=== PATIENT | female | born 1965 | race Two or more races ===

== ENCOUNTER 2024-10-26 05:38 | Inpatient (IN) | payer BC, OTHER ==
[~2024-10-26] VITALS: Ht 162.6 cm; Wt 73.8 kg
[2024-10-26] VITALS (8 sets, daily range): BP systolic 114–124; BP diastolic 48–63; PULSE 60–107; RESP 14–22; TEMP 97.8–98.8; O2SAT 91–98
--- NOTE | 2024-10-26 06:23 | ED.PDOC ---
GI ASSESSMENT HPI Comments 59 year old female KEVIN presents to the ED with chief complaint of N/V/D. Patient reports that since Wednesday, she had been experiencing nasal congestion with associated cough and nausea, however, since Wednesday she started to experience N/V/D with abdominal pain. Patient relays that she has had no recent sick contacts. Patient denies any hematemesis, dysuria, fever, chills, dizziness, headache, SOB. Chief Complaint: Nausea/Vomiting Time Seen by MD: 06:20 Reviewed Notes: Nurses Notes, Medications, Allergies Allergies: Coded Allergies: NO KNOWN ALLERGIES (Unverified , 10/26/24) Information Source: Patient, Spouse Mode of Arrival: EMS Timing: Days Duration: Since onset Prehospital treatment: None Quality: Aching Vomitus: Watery Stool: Watery Severity: Moderate Recent: None Recent Hx of: None Pain Location: Epigastric Modifying Factors: Nothing Associated sign and symptoms: Nausea, Vomiting, Diarrhea, Abdominal Pain Past Medical History PAST MEDICAL HISTORY: Denies Surgical History: Denies all surgeries MOTEL MANAGER History: 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 Family History Family History: Reviewed,noncontributory to illness Social History Smoker: Non-Smoker Alcohol: Denies ETOH Use Drugs: Denies Drug Use Lives In: Home Constitutional: denies: chills, diaphoresis, fatigue, fever, malaise, sweats, weakness, others EENTM: reports: nose congestion; denies: blurred vision, double vision, ear bleeding, ear discharge, ear drainage, ear pain, ear ringing, eye pain, eye redness, hearing loss, mouth pain, mouth swelling, nasal discharge, nose bleeding, nose pain, photophobia, tearing, throat pain, throat swelling, voice changes, others Respiratory: reports: cough; denies: hemoptysis, orthopnea, SOB at rest, shortness of breath, SOB with excertion, stridor, wheezing, others Cardiovascular: denies: chest pain, dizzy spells, diaphoresis, Dyspnea on exertion, edema, irregular heart beat, left arm pain, lightheadedness, palpitations, PND, syncope, others Gastrointestinal: reports: abdominal pain, diarrhea, nausea, vomiting; denies: abdomen distended, blood streaked bowels, constipated, dysphagia, difficulty swallowing, hematemesis, melena, poor appetite, poor fluid intake, rectal bleeding, rectal pain, others Genitourinary: denies: abnormal vagina bleeding, burning, dyspareunia, dysuria, flank pain, frequency, hematuria, incontinence, pain, , vagina discharge, urgency, others Neurological: denies: dizziness, fainting, headache, left sided numbness, left sided weakness, numbness, paresthesia, pre-existing deficit, right sided numbness, right sided weakness, seizure, speech problems, tingling, tremors, weakness, others Musculoskeletal: denies: back pain, gout, joint pain, joint swelling, muscle pain, muscle stiffness, neck pain, others Integumetry: denies: bruises, change in color, change in hair/nails, dryness, laceration, lesions, lumps, rash, wounds, others Allergic/Immunocompromised: denies: Difficulty Healing, Frequent Infections, Hives, Itching, others Hematologic/Lymphatic: denies: anemia, blood clots, easy bleeding, easy bruising, swollen glands, others Endocrine: denies: excessive hunger, excessive sweating, excessive thirst, excessive urination, flushing, intolerance to cold, intolerance to heat, unexplained weight gain, unexplained weight loss, others Psychiatric: denies: anxiety, bipolar disorder, depression, hopeless, panic disorder, schizophrenia, sleepless, suicidal, others All Other Systems: Reviewed and Negative Physical Exam General Appearance: Moderate Distress, Normal HEENT: Normal ENT Inspection, PERRL/EOMI, Pharynx Normal, TMs Normal Neck: Full Range of Motion, Non-Tender, Normal, Normal Inspection Respiratory: Chest Non-Tender, Lungs Clear, No Accessory Muscle Use, No Respiratory Distress, Normal Breath Sounds Cardiovascular: No Edema, No JVD, No Murmur, No Gallop, Normal Peripheral Pulses, Regular Rate/Rhythm Breast Exam: Deferred Gastrointestinal: No Organomegaly, No Pulsatile Mass, Normal Bowel Sounds, Soft Genitalia: Deferred Pelvic: Deferred Rectal: Deferred Extremities: No calf tenderness, Normal capillary refill, Normal inspection, Normal range of motion, Non-tender, No pedal edema Musculoskeletal : Apperance: Normal Neurologic: Alert, country printer II-XII nml as Tested, No Motor Deficits, Normal Affect, Normal Mood, No Sensory Deficits Cerebellar Function: Normal Reflexes: Normal Skin: Dry, Normal Color, Warm Peripheral Pulses: 3+ Radial (R), 3+ Radial (L) Lymphatic: No Adenopathy Was a procedure done? Was a procedure done?: No GI differential Dx Differential Diagnosis: Constipation, Diverticular disease, Esophagitis, Gastritis/PUD, Gastroenteritis X-Ray, Labs, Meds, VS Vital Signs Date Time Temp Pulse Resp B/P (MAP) Pulse Ox O2 Delivery O2 Flow Rate FiO2 10/26/24 09:22 70 18 135/57 10/26/24 08:24 17 Room Air* 0 21 10/26/24 07:28 107 22 147/76 10/26/24 07:05 107 22 147/76 (99) 98 10/26/24 07:05 107 22 98 Room Air* 0 21 10/26/24 05:42 97.8 88 16 121/67 (85) 98 Lab Test 10/26/24 09:00 10/26/24 07:54 10/26/24 06:30 Range/Units Urine Color Yellow Yellow Urine Clarity Turbid H Clear Urine pH 5.5 5.0-9.0 Urine Specific [place] 1.026 1.001-1.035 Urine Protein 2+ H Negative Urine Ketones 2+ H Negative Urine Blood 1+ H Negative /uL Urine Nitrite Negative Negative Urine Bilirubin 1+ H Negative Urine Urobilinogen 2 H Negative mg/dL Urine Leukocyte Esterase Negative Negative /uL Urine RBC 2 0 - 4 /hpf Urine WBC 10 0 - 5 /hpf Urine Squamous Epithelial Cells None seen <5 /hpf Urine Bacteria None seen None Seen /hpf Urine Hyaline Casts Many 0 - 2 /lpf Urine Mucus Few None Seen Urine Glucose Normal Normal mg/dL Lactic Acid Level 1.5 0.4-2.0 mmol/L White Blood Count 5.0 4.4-10.8 10^3/uL Red Blood Count 4.97 4.0-5.20 10^6/uL Hemoglobin 16.2 12.2-16.2 g/dL Hematocrit 47.1 H 36.0-46.0 % Mean Corpuscular Volume 94.7 80.0-100.0 fL Mean Corpuscular Hemoglobin 32.6 H 28.0-32.0 pg Mean Corpuscular Hemoglobin Concent 34.4 32.0-36.0 g/dL Red Cell Distribution Width 12.7 11.8-14.3 % Platelet Count 251 140-450 10^3/uL Mean Platelet Volume 8.6 6.9-10.8 fL Neutrophils (%) (Auto) 66.7 37.0-80.0 % Lymphocytes (%) (Auto) 21.6 10.0-50.0 % Monocytes (%) (Auto) 11.2 0.0-12.0 % Eosinophils (%) (Auto) 0.0 0.0-7.0 % Basophils (%) (Auto) 0.5 0.0-2.0 % Neutrophils # (Auto) 3.3 1.6-8.6 10 ^3/uL Lymphocytes # (Auto) 1.1 0.4-5.4 10 ^3/uL Monocytes # (Auto) 0.6 0-1.3 10 ^3/uL Eosinophils # (Auto) 0 0-0.8 10 ^3/uL Basophils # (Auto) 0 0-0.2 10 ^3/uL Nucleated Red Blood Cells 0.1 % Sodium Level 134 L 136-145 mmol/L Potassium Level 4.4 3.5-5.1 mmol/L Chloride Level 103 98-107 mmol/L Carbon Dioxide Level 14 L 20-31 mmol/L Anion Gap 17 H 5-15 Blood Urea Nitrogen 31 H 9-23 mg/dL Creatinine 1.39 H 0.550-1.02 mg/dL Glomerular Filtration Rate Calc 44 >90 mL/min BUN/Creatinine Ratio 22.3 H 10.0-20.0 Serum Glucose 121 H 74-106 mg/dL Calcium Level 8.8 8.7-10.4 mg/dL Troponin I High Sensitivity 4 </=34 ng/L Current Medications Medications (Trade) Dose Ordered Sig/Pancho Route Start Time Stop Time Status Last Admin Sodium Chloride 1,000 ml @ 1,000 mls/hr Q1H ONCE IV 10/26/24 06:30 10/26/24 07:29 DC 10/26/24 07:22 Ondansetron HCl (Zofran) 4 mg ONCE ONCE IV 10/26/24 06:30 10/26/24 06:31 DC 10/26/24 07:22 Morphine Sulfate 4 mg ONCE ONCE IV 10/26/24 06:30 10/26/24 06:31 DC 10/26/24 07:28 Patient alert. Complaining of abdominal pain. Vitals stable. Answering all questions. Denies use of any drugs. Abdomen is soft. Was given pain medication. Was given Zofran. Explained to the patient. Continue cardiac monitoring. Acute tubular necrosis. Continue fluids. Chest x-ray reviewed does not show any acute changes. Chest XR: FINDINGS: Lines and Tubes: None Lungs: No focal consolidation. Pleura: No effusion. No pneumothorax. Cardiomediastinal contours: Unremarkable Bones: No acute osseous abnormality. IMPRESSION: 1. No acute cardiopulmonary disease. CT Abd/Pel:Findings: Evaluation of vasculature and solid organs is limited due to lack of intravenous contrast use. Lung Bases: Lung bases are clear. Visualized portions of the heart and pericardium are unremarkable. Liver: The liver is normal in size. No focal lesions. Diffusely hypoattenuating liver parenchyma consistent with hepatic steatosis. Gallbladder and Biliary Tree: The gallbladder is unremarkable. No intrahepatic or extrahepatic biliary ductal dilatation. Spleen: Unremarkable Pancreas: The pancreas is grossly unremarkable. Adrenal Glands: Unremarkable Kidneys: Kidneys are unremarkable without calculi or hydronephrosis. GI tract: The stomach is grossly normal in appearance. No evidence of small bowel wall thickening or abnormal dilatation to suggest bowel obstruction. The colon is unremarkable. The appendix is not visualized, however no inflammatory changes in the right lower quadrant to suggest acute appendicitis. Peritoneum/mesentery/retroperitoneum. No evidence of free intraperitoneal air. No ascites. No evidence of suspicious lymphadenopathy. Abdominal Wall: Unremarkable. Vasculature: The visualized abdominal aorta is normal in size and caliber. Evaluation of abdominal and pelvic vessels is limited due to lack of intravenous contrast. Urinary Bladder: Grossly unremarkable for degree of distention. Pelvic Organs: Unremarkable Musculoskeletal: No aggressive focal bony lesions, acute fractures or dislocation. IMPRESSION: 1. No CT evidence of gallstones or acute abdominal or pelvic findings. Right upper quadrant ultrasound may be obtained for further evaluation if there is concern for cholelithiasis. 2. Hepatic steatosis. Abdomen US: FINDINGS: The visualized liver parenchyma appears homogenous . The liver measures 13.2 cm. No discrete hepatic lesion or intrahepatic biliary ductal dilatation is identified. There is no evidence of gallstones, gallbladder wall thickening or pericholecystic fluid. The common biliary duct is not dilated. The right kidney measures 9.5 cm length. The left kidney measures 9.1 cm. No sonographic evidence of nephrolithiasis or hydronephrosis. The spleen measures 9.9 cm and appears within normal limits. Pancreas is obscured by bowel gas. The visualized portions of the IVC and aorta are grossly unremarkable. IMPRESSION: 1. The visualized solid abdominal viscera appears within normal limits. Images Reviewed?: Images reviewed and evaluated by me Time of 1ST Reevaluation: 07:20 Reevaluation 1ST: Unchanged Patient Education/Counseling: Diagnosis, Treatment Family Education/Counseling: Diagnosis, Treatment Departure 1 Departure Time of Disposition: 06:29 Impression: Primary Impression: Acute abdominal pain Additional Impression: Acute tubular necrosis Disposition: ADMITTED INPATIENT Admit to: Med Surg Condition: Guarded Critical Care Note Critical Care Time?: Yes (45 min-critical care time only) Stability Stability form required: No Heart Score Heart Score: Heart Score Response (Comments) Value History N/A 0 EKG N/A 0 Age N/A 0 Risk Factors N/A 0 Troponin N/A 0 Total 0 I personally scribed for MARI SOTELO MD ([email or web address]) on 10/26/24 at 06:23. Electronically submitted by Wm Starks ([email or web address]). I personally scribed for MARI SOTELO MD ([email or web address]) on 10/26/24 at 07:31. Electronically submitted by Wm Starks ([email or web address]). I personally scribed for MARI SOTELO MD ([email or web address]) on 10/26/24 at 09:16. Electronically submitted by Wm Starks ([email or web address]). I personally scribed for MARI SOTELO MD ([email or web address]) on 10/26/24 at 11:12. Electronically submitted by Wm Starks ([email or web address]). MARI SOTELO MD Oct 26, 2024 06:23
[2024-10-26 07:17] LABS: Basophils # (auto) 0 10 ^3/uL (0-0.2); Basophils % (auto) 0.5 % (0.0-2.0); Eosinophils # (auto) 0 10 ^3/uL (0-0.8); Hematocrit 47.1 % (36.0-46.0); Hemoglobin 16.2 g/dL (12.2-16.2); Lymphocytes # (auto) 1.1 10 ^3/uL (0.4-5.4); Lymphocytes % (auto) 21.6 % (10.0-50.0); Mean Corpuscular Hemoglobin 32.6 pg (28.0-32.0); Mean Corpuscular Hgb Conc. 34.4 g/dL (32.0-36.0); Mean Corpuscular Volume 94.7 fL (80.0-100.0); Monocytes # (auto) 0.6 10 ^3/uL (0-1.3); Monocytes % (auto) 11.2 % (0.0-12.0); Neutrophils # (auto) 3.3 10 ^3/uL (1.6-8.6); Neutrophils % (auto) 66.7 % (37.0-80.0); Nucleated Red Blood Cells % 0.1 %; Platelet Count (auto) 251 10^3/uL (140-450); Red Blood Cells 4.97 10^6/uL (4.0-5.20); Red Cell Distribution Width 12.7 % (11.8-14.3)
[2024-10-26] MEDS: ONDANSETRON HCL 4 MG/2 ML VIAL IV ONE (07:22)
[2024-10-26] MEDS: SODIUM CHLORIDE 0.9% 1,000 ML IV ONE ×2 (07:22→07:30)
[2024-10-26 07:23] LABS: Calcium 8.8 mg/dL (8.7-10.4)
[2024-10-26 07:24] LABS: Chloride 103 mmol/L (98-107); Potassium 4.4 mmol/L (3.5-5.1)
[2024-10-26 07:26] LABS: Anion Gap 17 (5-15); Carbon Dioxide 14 mmol/L (20-31); Sodium 134 mmol/L (136-145)
[2024-10-26 07:28] LABS: BUN/Creatinine Ratio 22.3 (10.0-20.0)
[2024-10-26] MEDS: MORPHINE SULFATE 4 MG/ML SYR/VIAL IV ONE (07:28)
--- NOTE | 2024-10-26 07:29 | DVH ---
CHEST RADIOGRAPH Indication: cough Technique: Single frontal view of the chest was obtained Comparison: None FINDINGS: Lines and Tubes: None Lungs: No focal consolidation. Pleura: No effusion. No pneumothorax. Cardiomediastinal contours: Unremarkable Bones: No acute osseous abnormality. IMPRESSION: 1. No acute cardiopulmonary disease.
[2024-10-26 07:35] LABS: Blood Urea Nitrogen 31 mg/dL (9-23); Glucose 121 mg/dL (74-106)
--- NOTE | 2024-10-26 08:35 | DVH ---
Exam: CT CT AB PEL WO CON-NO ORAL OR IV History: stonevsgallbladder Comparison Study: None available at time of dictation. Technique: Multidetector spiral CT of the abdomen and pelvis was performed from lung bases to pubic s ymphysis. Imaging was performed without intravenous contrast. Coronal and sagittal multiplanar refor mats were obtained from the axial data set by the technologist. Radiation Dose : 1. Abdomen/Pelvis: CTDIvol 6.0 mGy, DLP 297 mGy*cm. Findings: Evaluation of vasculature and solid organs is limited due to lack of intravenous contrast use. Lung Bases: Lung bases are clear. Visualized portions of the heart and pericardium are unremarkable. Liver: The liver is normal in size. No focal lesions. Diffusely hypoattenuating liver parenchyma con sistent with hepatic steatosis. Gallbladder and Biliary Tree: The gallbladder is unremarkable. No intrahepatic or extrahepatic bili zack ductal dilatation. Spleen: Unremarkable Pancreas: The pancreas is grossly unremarkable. Adrenal Glands: Unremarkable Kidneys: Kidneys are unremarkable without calculi or hydronephrosis. GI tract: The stomach is grossly normal in appearance. No evidence of small bowel wall thickening or abnormal dilatation to suggest bowel obstruction. The colon is unremarkable. The appendix is not vi sualized, however no inflammatory changes in the right lower quadrant to suggest acute appendicitis. Peritoneum/mesentery/retroperitoneum. No evidence of free intraperitoneal air. No ascites. No evidenc e of suspicious lymphadenopathy. Abdominal Wall: Unremarkable. Vasculature: The visualized abdominal aorta is normal in size and caliber. Evaluation of abdominal a nd pelvic vessels is limited due to lack of intravenous contrast. Urinary Bladder: Grossly unremarkable for degree of distention. Pelvic Organs: Unremarkable Musculoskeletal: No aggressive focal bony lesions, acute fractures or dislocation. IMPRESSION: 1. No CT evidence of gallstones or acute abdominal or pelvic findings. Right upper quadrant ultrasoun d may be obtained for further evaluation if there is concern for cholelithiasis. 2. Hepatic steatosis.
[2024-10-26 09:44] LABS: Urine Bacteria None Seen /hpf (None Seen)
[2024-10-26 10:00] LABS: Urine Blood 1+ /uL (Negative); Urine Clarity Turbid (Clear); Urine Color Yellow (Yellow); Urine Hyaline Cast MANY /lpf (0 - 2); Urine Mucus FEW (None Seen); Urine Protein, UAD 2+ (Negative); Urine Specific Gravity 1.026 (1.001-1.035); Urine Urobilinogen 2 mg/dL (Negative); Urine WBC 10 /hpf (0 - 5); Urine pH 5.5 (5.0-9.0)
--- NOTE | 2024-10-26 10:05 | DVHHP2 ---
History of Present Illness Reason for Visit: Nausea vomiting and diarrhea History of Present Illness Malia Fitzgerald 51-year-old female who presents with cough, abdominal pain, nausea, vomiting, and diarrhea x 5 days. Patient reports that her fever was 102 F couple of days ago and it just broke last night tonight 99 F with Tylenol. Patient reports with at chair side that they are currently staying at a hotel nearby for his work. She reports that she typically cycles consistently daily. She denies any chest pain, shortness of breath, back pain, headache, lightheadedness, and dizziness. INCOME TAX MANAGER: Carpal Tunnel Syndrome Heme/Onc: Other (Vitamin-D deficiency) Past Surgical History Right Carpal tunnel surgery Family History Polycystic kidney disease Smoke: No ALCOHOL: none Drugs: Marijuana Lives: with Family Domestic Violence: Neg Review of Systems Constitutional: Yes: Fever, Chills; No: Sweats, Weakness, Malaise, Other Eyes: No: Pain, Vision change, Conjunctivae inflammation, Eyelid inflammation, Other, Redness ENT: No: Ear pain, Ear discharge, Nose pain, Nose discharge, Nose congestion, Mouth pain, Mouth swelling, Throat pain, Throat swelling, Other Respiratory: No: Cough, Dry, Shortness of breath, SOB with excertion, Wheezing, Hemoptysis, Pleuritic Pain, Sputum, Wheezing, Other Cardiovascular: No: Chest Pain, Palpitations, Orthopnea, Paroxysmal Noc. Dyspnea, Edema, Lt Headedness, Other Gastrointestinal: Nausea, Vomiting, Abdominal Pain, Diarrhea; No: Constipation, Melena, Hematochezia, Other Genitourinary: No Dysuria, No Frequency, No Incontinence, No Hematuria, No Retention, No Other Musculoskeletal: No: other, neck pain, shoulder pain, arm pain, back pain, hand pain, leg pain, foot pain Skin: No: Rash, Lesions, Jaundice, Bruising, Other Neurological: No: Weakness, Numbness, Incoordination, Change in speech, Confusion, Seizures, Other Allergies: Coded Allergies: NO KNOWN ALLERGIES (Unverified , 10/26/24) Exam Vital Signs Vital Signs Date Time Temp Pulse Resp B/P (MAP) Pulse Ox O2 Delivery O2 Flow Rate FiO2 10/26/24 09:22 70 18 135/57 10/26/24 08:24 Room Air* 0 21 10/26/24 07:05 98 10/26/24 05:42 97.8 General Appearance: Oriented X3, Cooperative, No acute distress HEENT: Atraumatic, PERRLA, EOMI, Mucous membr. moist/pink Respiratory: Clear to auscultation, Normal air movement Cardiovascular: Regular rate, Normal S1, Normal S2, No murmurs Abdominal: Soft Extremities: No clubbing, No cyanosis, No edema, Normal pulses, No tenderness/swelling Skin: No rashes, No breakdown, No significant lesion Neuro: Normal gait, Normal speech, Strength at 5/5 X4 ext, Normal tone, Sensation intact Psych/Mental Status: Mental status NL, Mood NL Labs/Xrays Labs Test 10/26/24 09:00 10/26/24 07:54 10/26/24 06:30 Range/Units Lactic Acid Level 1.5 0.4-2.0 mmol/L White Blood Count 5.0 4.4-10.8 10^3/uL Red Blood Count 4.97 4.0-5.20 10^6/uL Hemoglobin 16.2 12.2-16.2 g/dL Hematocrit 47.1 H 36.0-46.0 % Mean Corpuscular Volume 94.7 80.0-100.0 fL Mean Corpuscular Hemoglobin 32.6 H 28.0-32.0 pg Mean Corpuscular Hemoglobin Concent 34.4 32.0-36.0 g/dL Red Cell Distribution Width 12.7 11.8-14.3 % Platelet Count 251 140-450 10^3/uL Mean Platelet Volume 8.6 6.9-10.8 fL Neutrophils (%) (Auto) 66.7 37.0-80.0 % Lymphocytes (%) (Auto) 21.6 10.0-50.0 % Monocytes (%) (Auto) 11.2 0.0-12.0 % Eosinophils (%) (Auto) 0.0 0.0-7.0 % Basophils (%) (Auto) 0.5 0.0-2.0 % Neutrophils # (Auto) 3.3 1.6-8.6 10 ^3/uL Lymphocytes # (Auto) 1.1 0.4-5.4 10 ^3/uL Monocytes # (Auto) 0.6 0-1.3 10 ^3/uL Eosinophils # (Auto) 0 0-0.8 10 ^3/uL Basophils # (Auto) 0 0-0.2 10 ^3/uL Nucleated Red Blood Cells 0.1 % Sodium Level 134 L 136-145 mmol/L Potassium Level 4.4 3.5-5.1 mmol/L Chloride Level 103 98-107 mmol/L Carbon Dioxide Level 14 L 20-31 mmol/L Anion Gap 17 H 5-15 Blood Urea Nitrogen 31 H 9-23 mg/dL Creatinine 1.39 H 0.550-1.02 mg/dL Glomerular Filtration Rate Calc 44 >90 mL/min BUN/Creatinine Ratio 22.3 H 10.0-20.0 Serum Glucose 121 H 74-106 mg/dL Calcium Level 8.8 8.7-10.4 mg/dL Troponin I High Sensitivity 4 </=34 ng/L Exam: CT CT AB PEL WO CON-NO ORAL OR IV History: stonevsgallbladder Findings: Evaluation of vasculature and solid organs is limited due to lack of intravenous contrast use. Lung Bases: Lung bases are clear. Visualized portions of the heart and pericardium are unremarkable. Liver: The liver is normal in size. No focal lesions. Diffusely hypoattenuating liver parenchyma consistent with hepatic steatosis. Gallbladder and Biliary Tree: The gallbladder is unremarkable. No intrahepatic or extrahepatic biliary ductal dilatation. Spleen: Unremarkable Pancreas: The pancreas is grossly unremarkable. Adrenal Glands: Unremarkable Kidneys: Kidneys are unremarkable without calculi or hydronephrosis. GI tract: The stomach is grossly normal in appearance. No evidence of small bowel wall thickening or abnormal dilatation to suggest bowel obstruction. The colon is unremarkable. The appendix is not visualized, however no inflammatory changes in the right lower quadrant to suggest acute appendicitis. Peritoneum/mesentery/retroperitoneum. No evidence of free intraperitoneal air. No ascites. No evidence of suspicious lymphadenopathy. Abdominal Wall: Unremarkable. Vasculature: The visualized abdominal aorta is normal in size and caliber. Evaluation of abdominal and pelvic vessels is limited due to lack of intravenous contrast. Urinary Bladder: Grossly unremarkable for degree of distention. Pelvic Organs: Unremarkable Musculoskeletal: No aggressive focal bony lesions, acute fractures or dislocation. IMPRESSION: 1. No CT evidence of gallstones or acute abdominal or pelvic findings. Right up per quadrant ultrasound may be obtained for further evaluation if there is concern for cholelithiasis. 2. Hepatic steatosis. CHEST RADIOGRAPH Indication: cough Technique: Single frontal view of the chest was obtained Comparison: None FINDINGS: Lines and Tubes: None Lungs: No focal consolidation. Pleura: No effusion. No pneumothorax. Cardiomediastinal contours: Unremarkable Bones: No acute osseous abnormality. IMPRESSION: 1. No acute cardiopulmonary disease. ULTRASOUND ABDOMEN COMPLETE INDICATION: Rule out Cholelithiasis FINDINGS: The visualized liver parenchyma appears homogenous . The liver measures 13.2 cm. No discrete hepatic lesion or intrahepatic biliary ductal dilatation is identified. There is no evidence of gallstones, gallbladder wall thickening or pericholecyst ic fluid. The common biliary duct is not dilated. The right kidney measures 9.5 cm length. The left kidney measures 9.1 cm. No sonographic evidence of nephrolithiasis or hydronephrosis. The spleen measures 9.9 cm and appears within normal limits. Pancreas is obscured by bowel gas. The visualized portions of the IVC and aorta are grossly unremarkable. IMPRESSION: 1. The visualized solid abdominal viscera appears within normal limits. Assessment/Plan Assessment/Plan Assessment: Rule out cholelithiasis Intractable abdominal pain Hepatic Steatosis Hyponatremia Acute kidney injury History of right carpal tunnel surgery Vitamin-D deficiency Marijuana use Plan: Admit to med surg Abdominal Ultrasound CT abdomen and pelvis noted Chest x-ray noted UA Antiemetics IV fluids Pain management Monitor labs GI Prophylaxis Counseled on substance abuse Plan discussed with: Patient Date of Service: Oct 26, 2024 Billing Provider: NILS MATT Common Visit Codes: [id number] INP/OBS CARE (MOD) NILS MATT Oct 26, 2024 10:05
--- NOTE | 2024-10-26 10:57 | DVH ---
ULTRASOUND ABDOMEN COMPLETE INDICATION: Rule out Cholelithiasis TECHNIQUE: Multiple real-time sonographic images of the abdomen were obtained. COMPARISON: CT abdomen 10/26/2024 FINDINGS: The visualized liver parenchyma appears homogenous . The liver measures 13.2 cm. No discrete hep atic lesion or intrahepatic biliary ductal dilatation is identified. There is no evidence of gallstones, gallbladder wall thickening or pericholecystic fluid. The common biliary duct is not dilated. The right kidney measures 9.5 cm length. The left kidney measures 9.1 cm. No sonographic evidenc e of nephrolithiasis or hydronephrosis. The spleen measures 9.9 cm and appears within normal limits. Pancreas is obscured by bowel gas. The visualized portions of the IVC and aorta are grossly unremarkable. IMPRESSION: 1. The visualized solid abdominal viscera appears within normal limits. HS:Y
[2024-10-26] MEDS ORDERED: DOCUSATE SOD 100 MG CAP PO PRN (11:15)
[2024-10-26] MEDS ORDERED: MAALOX PLUS or MAALOX 30 ML PO PRN (11:15)
[2024-10-26] MEDS: SODIUM CHLORIDE 0.9% 1,000 ML IV SCH (11:39)
[2024-10-26] MEDS: MORPHINE SULFATE INJ 2 MG/ml SYRG IV PRN (12:02)
[2024-10-26] MEDS: HYDROcodone-ACET 5/325MG TAB PO PRN (14:36)
[2024-10-26] MEDS: LORazepam 0.5 MG TAB PO PRN (22:22)
[2024-10-27 01:00] VITALS: BP 97/47; PULSE 68; RESP 17; TEMP 98.8; O2SAT 92
[2024-10-27 02:44] VITALS: RESP 18; O2SAT 92
[2024-10-27] MEDS: ONDANSETRON HCL 4 MG/2 ML VIAL IV PRN (04:52)
[2024-10-27 05:00] VITALS: BP 113/54; PULSE 90; RESP 17; TEMP 98.8; O2SAT 94
[2024-10-27 06:48] LABS: Potassium 3.5 mmol/L (3.5-5.1); Sodium 140 mmol/L (136-145)
[2024-10-27 06:49] LABS: Anion Gap 11 (5-15); Carbon Dioxide 21 mmol/L (20-31)
[2024-10-27 06:50] LABS: Calcium 9.1 mg/dL (8.7-10.4); Chloride 108 mmol/L (98-107)
[2024-10-27 06:54] LABS: Glucose 86 mg/dL (74-106)
[2024-10-27 06:55] LABS: BUN/Creatinine Ratio 30.9 (10.0-20.0)
[2024-10-27 07:00] LABS: Blood Urea Nitrogen 25 mg/dL (9-23)
[2024-10-27 07:06] LABS: Basophils # (auto) 0 10 ^3/uL (0-0.2); Basophils % (auto) 0.6 % (0.0-2.0); Eosinophils # (auto) 0 10 ^3/uL (0-0.8); Eosinophils % (auto) 0.6 % (0.0-7.0); Hematocrit 37.2 % (36.0-46.0); Hemoglobin 12.6 g/dL (12.2-16.2); Lymphocytes # (auto) 1.1 10 ^3/uL (0.4-5.4); Lymphocytes % (auto) 33.4 % (10.0-50.0); Mean Corpuscular Hemoglobin 32.4 pg (28.0-32.0); Mean Corpuscular Hgb Conc. 33.9 g/dL (32.0-36.0); Mean Corpuscular Volume 95.4 fL (80.0-100.0); Monocytes # (auto) 0.4 10 ^3/uL (0-1.3); Monocytes % (auto) 12.4 % (0.0-12.0); Neutrophils # (auto) 1.8 10 ^3/uL (1.6-8.6); Nucleated Red Blood Cells % 0.5 %; Platelet Count (auto) 171 10^3/uL (140-450); Red Cell Distribution Width 12.7 % (11.8-14.3); White Blood Cell 3.4 10^3/uL (4.4-10.8)
[2024-10-27 09:03] VITALS: BP 119/51; PULSE 72; RESP 12; TEMP 98.1; O2SAT 94
[2024-10-27] MEDS: PANTOPRAZOLE 40 MG/10 ML VIAL INJ IV SCH (09:36)
[2024-10-27 13:07] VITALS: BP 117/55; PULSE 81; RESP 12; TEMP 98.5; O2SAT 94
--- NOTE | 2024-10-27 13:31 | DVHPN2 ---
Reviewed: Care Plan, H&P, Labs, Medications, Previous Orders, Radiology Changes from previous H/P or p: No Changes Eyes: No Pain, No Vision change, No Conjunctivae inflammation, No Eyelid inflammation, No Other, No Redness ENT: No Ear pain, No Ear discharge, No Nose pain, No Nose discharge, No Nose congestion, No Mouth pain, No Mouth swelling, No Throat pain, No Throat swelling, No Other Cardiovascular: No Chest Pain, No Palpitations, No Orthopnea, No Paroxysmal Noc. Dyspnea, No Edema, No Lt Headedness, No Other Respiratory: No Cough, No Dry, No Shortness of breath, No SOB with excertion, No Wheezing, No Hemoptysis, No Pleuritic Pain, No Sputum, No Other Gastrointestinal: Nausea, Vomiting, Abdominal Pain, Diarrhea; No Constipation, No Melena, No Hematochezia, No Other Genitourinary: No Dysuria, No Frequency, No Incontinence, No Hematuria, No Retention, No Other Musculoskeletal: No other, No neck pain, No shoulder pain, No arm pain, No back pain, No hand pain, No leg pain, No foot pain Skin: No Rash, No Lesions, No Jaundice, No Bruising, No Other Objective Vitals Vital Signs Date Time Temp Pulse Resp B/P (MAP) Pulse Ox O2 Delivery O2 Flow Rate FiO2 10/27/24 13:07 98.5 81 12 117/55 (75) 94 98.5 10/27/24 07:45 Room Air* 0 21 Intake/Output Intake and Output 10/27/24 07:00 Intake Total 2100 ml Output Total 0 ml Balance 2100 ml Intake Oral 0 ml IV Total 2100 ml Output Stool Total 0 ml # Voids 5 Medications Current Medications Medications Dose Ordered Sig/Pancho Route Start Time Stop Time Status Last Admin Dose Admin Sodium Chloride 1,000 ml @ 100 mls/hr Q10H IV 10/26/24 11:15 10/27/24 04:57 100 MLS/HR Lorazepam 0.5 mg Q6HP PRN PO 10/26/24 11:15 10/26/24 22:22 0.5 MG Al Hydrox/Mg Hydrox/Simethicone 30 ml Q6HP PRN PO 10/26/24 11:15 Docusate Sodium 100 mg BIDPRN PRN PO 10/26/24 11:15 Acetaminophen 650 mg Q6HP PRN PO 10/26/24 11:15 Acetaminophen/ Hydrocodone Bitart 1 tab Q4HP PRN PO 10/26/24 11:15 10/26/24 21:58 1 TAB Ondansetron HCl 4 mg Q4HP PRN IV 10/26/24 11:15 10/27/24 04:52 4 MG Morphine Sulfate 2 mg Q4HPRN PRN IV 10/26/24 11:15 10/26/24 12:02 2 MG Pantoprazole Sodium 40 mg DAILY IV 10/27/24 10:00 10/27/24 09:36 40 MG Laboratory Results Laboratory Tests 10/27/24 05:24 Chemistry Test 10/27/24 05:24 Calcium Level 9.1 mg/dL (8.7-10.4) Urinalysis Test 10/26/24 09:00 Urine Color Yellow (Yellow) Urine Clarity Turbid (Clear) H Urine pH 5.5 (5.0-9.0) Urine Specific [place] 1.026 (1.001-1.035) Urine Protein 2+ (Negative) H Urine Ketones 2+ (Negative) H Urine Blood 1+ /uL (Negative) H Urine Nitrite Negative (Negative) Urine Bilirubin 1+ (Negative) H Urine Urobilinogen 2 mg/dL (Negative) H Urine Leukocyte Esterase Negative /uL (Negative) Urine RBC 2 /hpf (0 - 4) Urine WBC 10 /hpf (0 - 5) Urine Squamous Epithelial Cells None seen /hpf (<5) Urine Bacteria None seen /hpf (None Seen) Urine Hyaline Casts Many /lpf (0 - 2) Urine Mucus Few (None Seen) Urine Glucose Normal mg/dL (Normal) Labs and/or images reviewed: Labs reviewed by me, Image(s) reviewed by me Assessment/Plan Assessment/Plan Rule out cholelithiasis, CT abdomen pelvis negative for gallstones Intractable abdominal pain: CT abdomen pelvis without contrast negative, pantoprazole Consult for Dr. Olguin Hepatic Steatosis Hyponatremia Acute kidney injury Marijuana use We will check urine drug screen and blood alcohol level Plan discussed with: Patient My Orders Orders - DEON FAIR MD Procedure Category Date Status Time Drug Screen LAB 10/27/24 Logged 13:27 Blood Alcohol LAB 10/27/24 Logged 13:27 * [facility] [employer] CONS 10/27/24 Verified 13:28 Date of Service: Oct 27, 2024 Billing Provider: DEON FAIR MD Common Visit Codes: [id number] INP/OBS CARE(HIGH) DEON FAIR MD Oct 27, 2024 13:31
[2024-10-27] MEDS: SODIUM CHLORIDE 0.9% 1,000 ML IV SCH (15:15)
--- NOTE | 2024-10-27 15:24 | DVHINCON2 ---
Date of service: Oct 27, [address] hurtado Reason for Consultation Abdominal pain nausea vomiting diarrhea History of Present Illness 51-year-old loops abdominal pain in the epigastrium and variability with nausea vomiting diarrhea patient had some fever 102 Denied any hematemesis melena or other pathology. Occasionally gets headaches and nausea vomiting patient had a CT scan done which was unremarkable except for some rales hepatic steatosis. Ultrasound of the gallbladder is also unremarkable. No history of unusual food ingestion Past Medical History Carpal tunnel Past Surgical History Carpal tunnel surgery Family History: Pacemaker Family History None Social History Denies smoking Allergies: Coded Allergies: NO KNOWN ALLERGIES (Unverified , 10/26/24) Current Medications Current Medications Medications (Trade) Dose Ordered Sig/Pancho Route PRN Reason Start Time Stop Time Status Last Admin Pantoprazole Sodium (Protonix) 40 mg DAILY IV 10/27/24 10:00 10/27/24 09:36 Sodium Chloride 1,000 ml @ 150 mls/hr Q6H40M IV 10/27/24 15:15 UNV Review of Systems Noncontributory Vital Signs Vital Signs Date Time Temp Pulse Resp B/P (MAP) Pulse Ox O2 Delivery O2 Flow Rate FiO2 10/27/24 13:07 98.5 81 12 117/55 (75) 94 98.5 10/27/24 07:45 Room Air* 0 21 Physical Exam Moderately built and nourished female in no acute distress Lungs Clear Abdomen soft mild nonspecific tenderness in the epigastrium no rigidity no guarding no mass Bowel sounds normal Extremities normal Labs/Diagnostic Data Labs Test 10/27/24 05:24 10/26/24 09:00 10/26/24 07:54 10/26/24 06:30 Range/Units White Blood Count 3.4 #L 4.4-10.8 10^3/uL Red Blood Count 3.90 L 4.0-5.20 10^6/uL Hemoglobin 12.6 # 12.2-16.2 g/dL Hematocrit 37.2 # 36.0-46.0 % Mean Corpuscular Volume 95.4 80.0-100.0 fL Mean Corpuscular Hemoglobin 32.4 H 28.0-32.0 pg Mean Corpuscular Hemoglobin Concent 33.9 32.0-36.0 g/dL Red Cell Distribution Width 12.7 11.8-14.3 % Platelet Count 171 140-450 10^3/uL Mean Platelet Volume 8.7 6.9-10.8 fL Neutrophils (%) (Auto) 53.0 37.0-80.0 % Lymphocytes (%) (Auto) 33.4 10.0-50.0 % Monocytes (%) (Auto) 12.4 H 0.0-12.0 % Eosinophils (%) (Auto) 0.6 0.0-7.0 % Basophils (%) (Auto) 0.6 0.0-2.0 % Neutrophils # (Auto) 1.8 1.6-8.6 10 ^3/uL Lymphocytes # (Auto) 1.1 0.4-5.4 10 ^3/uL Monocytes # (Auto) 0.4 0-1.3 10 ^3/uL Eosinophils # (Auto) 0 0-0.8 10 ^3/uL Basophils # (Auto) 0 0-0.2 10 ^3/uL Nucleated Red Blood Cells 0.5 % Sodium Level 140 # 136-145 mmol/L Potassium Level 3.5 3.5-5.1 mmol/L Chloride Level 108 H 98-107 mmol/L Carbon Dioxide Level 21 20-31 mmol/L Anion Gap 11 5-15 Blood Urea Nitrogen 25 H 9-23 mg/dL Creatinine 0.81 # 0.550-1.02 mg/dL Glomerular Filtration Rate Calc 84 >90 mL/min BUN/Creatinine Ratio 30.9 H 10.0-20.0 Serum Glucose 86 74-106 mg/dL Calcium Level 9.1 8.7-10.4 mg/dL Plasma/Serum Blood Alcohol 5.4 <10 mg/dL Urine Color Yellow Yellow Urine Clarity Turbid H Clear Urine pH 5.5 5.0-9.0 Urine Specific [place] 1.026 1.001-1.035 Urine Protein 2+ H Negative Urine Ketones 2+ H Negative Urine Blood 1+ H Negative /uL Urine Nitrite Negative Negative Urine Bilirubin 1+ H Negative Urine Urobilinogen 2 H Negative mg/dL Urine Leukocyte Esterase Negative Negative /uL Urine RBC 2 0 - 4 /hpf Urine WBC 10 0 - 5 /hpf Urine Squamous Epithelial Cells None seen <5 /hpf Urine Bacteria None seen None Seen /hpf Urine Hyaline Casts Many 0 - 2 /lpf Urine Mucus Few None Seen Urine Glucose Normal Normal mg/dL Lactic Acid Level 1.5 0.4-2.0 mmol/L Troponin I High Sensitivity 4 </=34 ng/L Assessment External female with complaints abdominal pain nausea vomiting diarrhea longitudinally unusual food ingestion CT scan abdomen as well as ultrasound was are unremarkable no hematemesis or melena BUN creatinine are slightly increased Impression possible gastroenteritis with some dehydration and has abnormal kidney function Plan/Recommendation Increase fluids and symptomatic treatment and see Symptoms persist may need further evaluation as necessary Thank you Dr. Rodriguez Plan discussed with: Patient MARIN RODRIGUEZ MD Oct 27, 2024 15:24
[2024-10-27 20:00] VITALS: RESP 18
[2024-10-27] MEDS: ACETAMINOPHEN 325 MG TAB PO PRN (20:31)
[2024-10-28 01:00] VITALS: BP 106/43; PULSE 70; RESP 18; TEMP 98.5; O2SAT 95
[2024-10-28 05:00] VITALS: BP 103/62; PULSE 64; RESP 18; TEMP 97.4; O2SAT 94
[2024-10-28] MEDS ORDERED: ZOFR4T PO (07:31)
[2024-10-28] MEDS ORDERED: PANT40T PO (07:31)
--- NOTE | 2024-10-28 07:33 | DVHPN2 ---
Reviewed: Care Plan, H&P, Labs, Medications, Previous Orders, Radiology Changes from previous H/P or p: No Changes Eyes: No Pain, No Vision change, No Conjunctivae inflammation, No Eyelid inflammation, No Other, No Redness ENT: No Ear pain, No Ear discharge, No Nose pain, No Nose discharge, No Nose congestion, No Mouth pain, No Mouth swelling, No Throat pain, No Throat swelling, No Other Cardiovascular: No Chest Pain, No Palpitations, No Orthopnea, No Paroxysmal Noc. Dyspnea, No Edema, No Lt Headedness, No Other Respiratory: No Cough, No Dry, No Shortness of breath, No SOB with excertion, No Wheezing, No Hemoptysis, No Pleuritic Pain, No Sputum, No Other Gastrointestinal: Nausea, Vomiting, Abdominal Pain, Diarrhea; No Constipation, No Melena, No Hematochezia, No Other Genitourinary: No Dysuria, No Frequency, No Incontinence, No Hematuria, No Retention, No Other Musculoskeletal: No other, No neck pain, No shoulder pain, No arm pain, No back pain, No hand pain, No leg pain, No foot pain Skin: No Rash, No Lesions, No Jaundice, No Bruising, No Other Objective Vitals Vital Signs Date Time Temp Pulse Resp B/P (MAP) Pulse Ox O2 Delivery O2 Flow Rate FiO2 10/28/24 05:00 97.4 64 18 103/62 (76) 94 97.4 10/27/24 20:00 Room Air* 0 21 Intake/Output Intake and Output 10/28/24 07:00 Intake Total 1170 ml Output Total 0 ml Balance 1170 ml Intake Oral 520 ml IV Total 650 ml Output Stool Total 0 ml # Voids 5 Medications Current Medications Medications Dose Ordered Sig/Pancho Route Start Time Stop Time Status Last Admin Dose Admin Lorazepam 0.5 mg Q6HP PRN PO 10/26/24 11:15 10/26/24 22:22 0.5 MG Al Hydrox/Mg Hydrox/Simethicone 30 ml Q6HP PRN PO 10/26/24 11:15 Docusate Sodium 100 mg BIDPRN PRN PO 10/26/24 11:15 Acetaminophen 650 mg Q6HP PRN PO 10/26/24 11:15 10/27/24 20:31 650 MG Acetaminophen/ Hydrocodone Bitart 1 tab Q4HP PRN PO 10/26/24 11:15 10/28/24 00:59 1 TAB Ondansetron HCl 4 mg Q4HP PRN IV 10/26/24 11:15 10/27/24 04:52 4 MG Morphine Sulfate 2 mg Q4HPRN PRN IV 10/26/24 11:15 10/26/24 12:02 2 MG Pantoprazole Sodium 40 mg DAILY IV 10/27/24 10:00 10/27/24 09:36 40 MG Sodium Chloride 1,000 ml @ 150 mls/hr Q6H40M IV 10/27/24 15:15 10/27/24 20:23 150 MLS/HR Laboratory Results Laboratory Tests 10/27/24 05:24 Urinalysis Test 10/26/24 09:00 Urine Color Yellow (Yellow) Urine Clarity Turbid (Clear) H Urine pH 5.5 (5.0-9.0) Urine Specific [place] 1.026 (1.001-1.035) Urine Protein 2+ (Negative) H Urine Ketones 2+ (Negative) H Urine Blood 1+ /uL (Negative) H Urine Nitrite Negative (Negative) Urine Bilirubin 1+ (Negative) H Urine Urobilinogen 2 mg/dL (Negative) H Urine Leukocyte Esterase Negative /uL (Negative) Urine RBC 2 /hpf (0 - 4) Urine WBC 10 /hpf (0 - 5) Urine Squamous Epithelial Cells None seen /hpf (<5) Urine Bacteria None seen /hpf (None Seen) Urine Hyaline Casts Many /lpf (0 - 2) Urine Mucus Few (None Seen) Urine Glucose Normal mg/dL (Normal) Labs and/or images reviewed: Labs reviewed by me, Image(s) reviewed by me Assessment/Plan Assessment/Plan Intractable abdominal pain: CT abdomen pelvis without contrast negative, pantoprazole Consult for Dr. Olguin apprecitaed Acute gastroenteritis Hepatic Steatosis Hyponatremia Acute kidney injury Marijuana use pt feels better no nausea or vomiting or abd pain and wants to go home. Plan discussed with: Patient My Orders Orders - DEON FAIR MD Procedure Category Date Status Time Drug Screen LAB 10/27/24 Logged 13:27 * [facility] [employer] Administrative Assistant CONS 10/27/24 Transmitted 13:28 Sodium Chloride 0.9% PHA 10/27/24 In Process 15:15 Date of Service: Oct 28, 2024 Billing Provider: DEON FAIR MD Common Visit Codes: [id number] INP/OBS CARE(HIGH) DEON FAIR MD Oct 28, 2024 07:33
--- NOTE | 2024-10-28 07:40 | DVHDS2 ---
Discharge Summary Date of Admission Oct 26, 2024 at 11:04 Date of Discharge: Oct 28, 2024 Admitting Diagnosis Abdominal pain nausea and vomiting Wounds: None Labs/Diagnostic Data: Laboratory Results Test 10/27/24 05:24 10/26/24 09:00 10/26/24 07:54 10/26/24 06:30 White Blood Count 3.4 10^3/uL (4.4-10.8) Red Blood Count 3.90 10^6/uL (4.0-5.20) Hemoglobin 12.6 g/dL (12.2-16.2) Hematocrit 37.2 % (36.0-46.0) Mean Corpuscular Volume 95.4 fL (80.0-100.0) Mean Corpuscular Hemoglobin 32.4 pg (28.0-32.0) Mean Corpuscular Hemoglobin Concent 33.9 g/dL (32.0-36.0) Red Cell Distribution Width 12.7 % (11.8-14.3) Platelet Count 171 10^3/uL (140-450) Mean Platelet Volume 8.7 fL (6.9-10.8) Neutrophils (%) (Auto) 53.0 % (37.0-80.0) Lymphocytes (%) (Auto) 33.4 % (10.0-50.0) Monocytes (%) (Auto) 12.4 % (0.0-12.0) Eosinophils (%) (Auto) 0.6 % (0.0-7.0) Basophils (%) (Auto) 0.6 % (0.0-2.0) Neutrophils # (Auto) 1.8 10 ^3/uL (1.6-8.6) Lymphocytes # (Auto) 1.1 10 ^3/uL (0.4-5.4) Monocytes # (Auto) 0.4 10 ^3/uL (0-1.3) Eosinophils # (Auto) 0 10 ^3/uL (0-0.8) Basophils # (Auto) 0 10 ^3/uL (0-0.2) Nucleated Red Blood Cells 0.5 % Sodium Level 140 mmol/L (136-145) Potassium Level 3.5 mmol/L (3.5-5.1) Chloride Level 108 mmol/L (98-107) Carbon Dioxide Level 21 mmol/L (20-31) Anion Gap 11 (5-15) Blood Urea Nitrogen 25 mg/dL (9-23) Creatinine 0.81 mg/dL (0.550-1.02) Glomerular Filtration Rate Calc 84 mL/min (>90) BUN/Creatinine Ratio 30.9 (10.0-20.0) Serum Glucose 86 mg/dL (74-106) Calcium Level 9.1 mg/dL (8.7-10.4) Plasma/Serum Blood Alcohol 5.4 mg/dL (<10) Urine Color Yellow (Yellow) Urine Clarity Turbid (Clear) Urine pH 5.5 (5.0-9.0) Urine Specific [place] 1.026 (1.001-1.035) Urine Protein 2+ (Negative) Urine Ketones 2+ (Negative) Urine Blood 1+ /uL (Negative) Urine Nitrite Negative (Negative) Urine Bilirubin 1+ (Negative) Urine Urobilinogen 2 mg/dL (Negative) Urine Leukocyte Esterase Negative /uL (Negative) Urine RBC 2 /hpf (0 - 4) Urine WBC 10 /hpf (0 - 5) Urine Squamous Epithelial Cells None seen /hpf (<5) Urine Bacteria None seen /hpf (None Seen) Urine Hyaline Casts Many /lpf (0 - 2) Urine Mucus Few (None Seen) Urine Glucose Normal mg/dL (Normal) Lactic Acid Level 1.5 mmol/L (0.4-2.0) Troponin I High Sensitivity 4 ng/L (</=34) Other Laboratory Tests 10/27/24 05:24 Brief Hx & Hospital Course: UTI 9-year-old female with no previous medical history came in complaining of abdominal pain nausea and vomiting all labs were normal CT abdomen pelvis without contrast negative treated with the pantoprazole Zofran patient probably had acute gastroenteritis per GI Dr. Olguin acute kidney injury resolved. IV fluids given. Patient positive for marijuana which probably may be causing nausea. pt says "Marijuana is legal in [place]" Steve present at bed side. Discharged home in stable condition Prescription for pantoprazole and Zofran transmitted to the pharmacy. Consults/Reason for consult GI Dr. Olguin Operations or Procedures CT abdomen pelvis without contrast Condition at Discharge: Fair Final Diagnosis/Problems List Intractable abdominal pain: CT abdomen pelvis without contrast negative, pantoprazole Consult for Dr. Olguin apprecitaed Acute gastroenteritis Hepatic Steatosis Hyponatremia Acute kidney injury Marijuana use Discharge Disposition: Home Discharge Instruct/Medications Diet: Regular Activity: Light activity Follow Up/Referral: Medications as prescribed Follow up with your primary Dr Medications: Pantoprazole Zofran Transmitted to pharmacy 35 (Time taken for discharge summary 35 minutes) Discharge Statement: "Patient was advised to return to the ER or call 911 if any headaches, dizziness, shortness of breath, chest pain, abdominal pain, bleeding, fevers, or worsening of medical condition. Patient was counseled about treatment plan, medications, possible side effects, patientverbalized understanding. All questions were answered to the best of my ability. This discharge took greater then 30 minutes in planning, reviewing documentation, counseling the patient, and discussing with other team members." ASSESSMENT ASSESSMENT Hospital Course Improved Assessment Intractable abdominal pain: CT abdomen pelvis without contrast negative, pantoprazole Consult for Dr. Olguin apprecitaed Acute gastroenteritis Hepatic Steatosis Hyponatremia Acute kidney injury Marijuana use Date of Service: Oct 28, 2024 Billing Provider: DEON FAIR MD Common Visit Codes: [id number] DISCH DAY >30min DEON FAIR MD Oct 28, 2024 07:40
[2024-10-28 09:00] VITALS: BP 116/56; PULSE 67; RESP 16; TEMP 98.1; O2SAT 95
[2024-10-28 09:26] VITALS: TEMP 36.7
== END 2024-10-28 10:00 | disposition home or self-care (01) | DRG 391 ==
LOC: EDBD 05:38 → ER 05:38 → OVERFLOW 11:04 → EAST 14:22 → CENTRAL 10-27 15:04
PROVIDERS: ATTEND Family Medicine
DX: K52.9 Noninfective gastroenteritis and colitis, unspecified (principal); N17.0 Acute kidney failure with tubular necrosis; E87.1 Hypo-osmolality and hyponatremia; N39.0 Urinary tract infection, site not specified; K76.0 Fatty (change of) liver, not elsewhere classified; E55.9 Vitamin D deficiency, unspecified; Z82.71 Family history of polycystic kidney
CPT/HCPCS: 36415; 71045; 74176; 76700; 80048; 80320; 81001; 83605; 84484; 85025; 99291; G0378; J2405; J2470